=== PATIENT | female | born 1970 | race Caucasian/White ===

== ENCOUNTER 2018-01-31 01:58 | Emergency (ER) | payer OTHER ==
[~2018-01-31] VITALS: Ht 162.6 cm; Wt 85.7 kg
[2018-01-31] MEDS ORDERED: PANTOPRAZOLE 40 MG 10ML VIAL IV ONE (02:45)
[2018-01-31] MEDS ORDERED: FAMOTIDINE 20 MG/2 ML VIAL IV ONE (02:45)
[2018-01-31] MEDS ORDERED: FAMOTIDINE 20 MG/2 ML VIAL IV STA (02:50)
[2018-01-31] MEDS ORDERED: PROMETHAZINE HCL (IM) 25 MG/ML VIAL IM ONE (03:15)
[2018-01-31] MEDS ORDERED: MORPHINE SULFATE 5 MG/ML VIAL IV ONE (03:15)
[2018-01-31] MEDS ORDERED: SODIUM CHLORIDE 0.9% 1000ML 1,000 ML ONE (03:15)
[2018-01-31] MEDS ORDERED: ONDANSETRON HCL 4 MG ORAL DISINTEGRATING TAB PO ONE (03:15)
--- NOTE | 2018-01-31 05:20 | Diagnostic Imaging Report ---
EXAM: CT Abdomen and Pelvis WITH contrast INDICATION: Epigastric pain, right upper quadrant pain, nausea, vomiting COMPARISON: None. TECHNIQUE: Abdomen and pelvis were scanned utilizing a multidetector helical scanner from the lung base to the pubic symphysis after administration of IV contrast. Coronal and sagittal reformations were obtained. Routine protocol was performed. Scan was performed when during portal venous phase. IV CONTRAST: 100 mL of Isovue-300 ORAL CONTRAST: None RADIATION DOSE: Total DLP: 736.38 mGy*cm Estimated effective dose: (DLP x 0.015 x size factor) mSv COMPLICATIONS: None FINDINGS: LINES and TUBES: None. LOWER THORAX: Small sliding hiatal hernia HEPATOBILIARY: No focal hepatic lesions. No biliary ductal dilation. GALLBLADDER: There are stones in the gallbladder. No wall thickening. SPLEEN: No splenomegaly. PANCREAS: No focal masses or ductal dilatation. ADRENALS: No adrenal nodules KIDNEYS/URETERS: Kidneys enhance symmetrically. No hydronephrosis. No cystic or solid mass lesions. No stones. GI TRACT: No abnormal distention, wall thickening, or evidence of bowel obstruction. There are diverticula within the colon without evidence of diverticulitis. Appendix is normal. PELVIC ORGANS/BLADDER: Unremarkable. LYMPH NODES: No lymphadenopathy. VESSELS: There is mild atherosclerotic disease in the aorta and major arterial branches. PERITONEUM / RETROPERITONEUM: No free air or fluid. BONES: Unremarkable. SOFT TISSUES: Unremarkable. IMPRESSION: 1. Cholelithiasis without evidence of acute cholecystitis, however, this finding may explain patient's right upper quadrant pain, nausea and vomiting. 2. Small sliding hiatal hernia. 3. Diverticulosis of the sigmoid colon without evidence of diverticulitis. Signed by: Dr. Mario Alberto Dixon M.D. on 01/31/2018 5:17 AM
[2018-01-31] MEDS ORDERED: AUGMENTIN 875-1 EACH PO (05:45)
[2018-01-31] MEDS ORDERED: TYLENOL WITH C1 EACH PO (05:45)
[2018-01-31] MEDS ORDERED: ZOFRAN ODT4 MG SL (05:45)
[2018-01-31 06:02] VITALS: BP 128/88
== END 2018-01-31 06:07 | disposition home or self-care (01) ==
LOC: FSED 01:58
DX: R10.11 Right upper quadrant pain (principal); R11.2 Nausea with vomiting, unspecified; K80.70 Calculus of gallbladder and bile duct without cholecystitis without obstruction; F17.210 Nicotine dependence, cigarettes, uncomplicated
CPT/HCPCS: 74177; 80048; 80076; 85025; 99284; J2270; J7030

== ENCOUNTER → 2018-03-08 | Day surgery (SDC) | payer OTHER ==
[2018-03-06 10:33] LABS: BASOPHILS # (AUTO) 0.1 (0.0-0.1); BASOPHILS % 1.1 % (0.0-1.0); EOSINOPHILS # (AUTO) 0.6 (0.0-0.4); EOSINOPHILS % 6.8 % (0.0-6.0); HEMATOCRIT 43.3 % (34.2-44.1); HEMOGLOBIN 14.3 g/dL (12.0-16.0); LYMPHOCYTES # (AUTO) 2.8 (1.0-3.2); LYMPHOCYTES % 31.7 % (18.0-39.1); MEAN CORPUSCULAR HEMOGLOBIN 29.9 pg (28-32); MEAN CORPUSCULAR VOLUME 90.6 fL (81-99); MONOCYTES # (AUTO) 0.8 (0.2-0.8); MONOCYTES % 8.7 % (4.4-11.3); NEUTROPHILS # (AUTO) 4.6 (2.1-6.9); NEUTROPHILS % 51.5 % (38.7-80.0); PLATELET COUNT 371 x10e3/uL (140-360); RED BLOOD COUNT 4.78 x10e6/uL (3.6-5.1); RED CELL DISTRIBUTION WIDTH 12.4 % (11.7-14.4)
[2018-03-06 10:43] LABS: BILIRUBIN,URINE NEGATIVE (NEGATIVE); CLARITY,URINE CLEAR (CLEAR); COLOR,URINE YELLOW (YELLOW); KETONES,URINE NEGATIVE (NEGATIVE); LEUKOCYTE ESTERASE ,URINE NEGATIVE (NEGATIVE); NITRITE,URINE NEGATIVE (NEGATIVE); PROTEIN,URINE DIPSTICK NEGATIVE (NEGATIVE); URINE UROBILINOGEN 0.2 mg/dL (0.2 - 1)
[2018-03-06 10:56] LABS: ALANINE AMINOTRANSFERASE 39 IU/L (0-55); ALBUMIN 4.1 g/dL (3.5-5.0); ALBUMIN/GLOBULIN RATIO 1.1 (0.8-2.0); ALKALINE PHOSPHATASE 75 IU/L (40-150); ANION GAP 17.2 mmol/L (8-16); BLOOD UREA NITROGEN 7 mg/dL (7-26); BUN/CREATININE RATIO 9 (6-25); CALCIUM 10.4 mg/dL (8.4-10.2); CARBON DIOXIDE 26 mmol/L (22-29); CHLORIDE 104 mmol/L (98-107); CREATININE, SERUM 0.79 mg/dL (0.57-1.11); EST GLOMERULAR FILTRATION RATE > 60 ML/MIN (60-); GLUCOSE 103 mg/dL (74-118); POTASSIUM 4.2 mmol/L (3.5-5.1); SODIUM 143 mmol/L (136-145)
[~2018-03-08] MED LIST: ACETAMINOPHEN 1000 MG/100 ML IV ONE; AUGMENTIN 875-1 EACH PO; BUPIVACAINE 0.25%/EPI 30ML SDV INJ ONE; DEXAMETHASONE SOD PHOS INJ 4 MG/ML VIAL ONE; FENTANYL CITRATE/PF 100MCG/2 ML INJ ONE; GLYCOPYRROLATE INJ 1MG/ 5 ML SYR ONE; HYDROMORPHONE 1MG/1ML INJ ONE; IOPAMIDOL 300MG/ML 50ML INFUS..BTL IV ONE; KETOROLAC TROMETHAMINE 30 MG/ML VIAL ONE; LIDOCAINE HCL 2% LOCAL INJ 5 ML SDV VIAL INJ ONE; MIDAZOLAM HCL 2 MG/2 ML VIAL ONE; MORPHINE SULFATE 2 MG/ML SYR ONE; NEOSTIGMINE 5 MG/5ML SYR ONE; ONDANSETRON HCL INJ 2 MG/ML VIAL ONE; PROPOFOL IV EMULSION 10 MG/ML 20 ML VIAL ONE; ROCURONIUM BROMIDE 10 MG/ML 5ML VIAL ONE; SEVOFLURANE INHAL SOLN 250 ML PEN BTL ONE; TYLENOL WITH C1 EACH PO; ZOFRAN ODT4 MG SL
[2018-03-08 12:00] VITALS: BP 118/70
--- NOTE | 2018-03-08 15:12 | Operative Report ---
DATE OF PROCEDURE: March 08, 2018 PREOPERATIVE DIAGNOSIS: Cholecystitis and cholelithiasis. POSTOPERATIVE DIAGNOSIS: Severe acute and chronic cholecystitis and cholelithiasis with hydropic gallbladder. OPERATION PERFORMED: Laparoscopic cholecystectomy. ANESTHESIA: General. COMPLICATIONS: None. ESTIMATED BLOOD LOSS: Minimal. DESCRIPTION OF PROCEDURE: With the patient lying in bed in the supine position under good general endotracheal anesthesia, the abdomen was prepped with Betadine solution and draped in the usual manner. A Veress needle was introduced into the umbilicus and pneumoperitoneum was established without any difficulty. An 11-mm trocar was placed into the umbilicus and a 10 mm video laparoscope was placed into the intra-abdominal cavity. Under direct vision, three 5-mm trocars were placed in the right subcostal region and an extra 5-mm trocar had to be placed in the left upper abdomen due to the findings of the laparoscopy. At laparoscopy, the patient was found to have a distended gallbladder that was totally covered up with adhesions. The transverse colon and the duodenum was totally stuck to the gallbladder. The gallbladder was very thick-walled and distended. There were multiple stones impacted at the neck of the gallbladder. The adhesions to the gallbladder were then slowly and carefully taken down and the bowel was then swept downward. At this point, we managed to get down to the neck of the gallbladder. The gallbladder had to be decompressed in order to be able to properly grasp it. Once this was done, there was some large stones impacted at the neck of the gallbladder. The peritoneum at the neck of the gallbladder was then opened, and a tubular structure that was probably the cystic duct was identified. This was slowly and carefully followed. We were not 100% sure that this was the cystic duct. We decided to go ahead and do the cholangiogram although we had visualized what appeared to be the common duct in the middle of all the inflammatory process that was there. A small opening was made into the cystic duct, and a cholangiocath was introduced. Dye was inserted into the biliary tree, and this showed free flow of dye into the duodenum. No retained common duct stones. Indeed, the structure that we believed to be the cystic duct was the cystic duct. The cholangiocath was then removed. The cystic duct was then doubly clipped and divided. The cystic artery was similarly doubly clipped and divided. The gallbladder was then slowly and carefully taken off of the liver bed, which was totally plastered from the chronic inflammatory process. Nonetheless, the gallbladder was slowly and carefully taken off. Placed in a pouch and removed through the umbilicus after enlarging the umbilical opening to allow for passage of the large stones. Video laparoscopy was then again carried out. The liver bed was found to perfectly dry. All of the excess fluid was aspirated. The pneumoperitoneum was evacuated and all the trocars were removed under direct vision. The midline fascia at the umbilicus was then closed with 2 [id number] of 0 Vicryl. The layers were infiltrated on the way out with a solution of 0.25% Marcaine. Subcutaneous tissue was approximated with 3-0 Vicryl and the skin was closed with subcuticular 5-0 Vicryl. Benzoin, Steri-Strips and Band-Aids were applied. The sponge, lap and needle count was correct. The patient tolerated the procedure well, and returned to the recovery room in stable condition. Job#: [id number]
--- NOTE | 2018-03-13 07:41 | Diagnostic Imaging Report ---
PROCEDURE: INTRAOPERATIVE CHOLANGIOGRAM COMPARISON: CT Abdomen/Pelvis 01/31/18. TECHNIQUE: Intraoperative cholangiogram was performed. Abdominal fluoroscopic radiographs from the procedure were made available for evaluation. FINDINGS:Provided images demonstrate opacification of a non-dilated common duct and right hepatic intraductal system. No filling defects are demonstrated to suggest stone or mass. Apparent narrowing of the distal common bile duct is not felt to be significant given free passage of contrast into the duodenum and lack of dilation proximally. IMPRESSION: No evidence of common bile duct or right intrahepatic ductal dilation or stone. Apparent narrowing of the distal common bile duct is not felt to be significant given free passage of contrast into the duodenum. Dictated by: BARBIE TEMPLE M.D. on 03/13/2018 at 7:49 Electronically approved by: BARBIE TEMPLE M.D. on 03/13/2018 at 7:49
== END | disposition home or self-care (01) ==
LOC: OR 05:22
PROVIDERS: ATTEND Surgery
DX: K80.12 Calculus of gallbladder with acute and chronic cholecystitis without obstruction (principal); K82.1 Hydrops of gallbladder; K82.8 Other specified diseases of gallbladder; K76.0 Fatty (change of) liver, not elsewhere classified; G47.33 Obstructive sleep apnea (adult) (pediatric); F17.210 Nicotine dependence, cigarettes, uncomplicated; Z91.048 Other nonmedicinal substance allergy status; Z01.810 Encounter for preprocedural cardiovascular examination; Z01.812 Encounter for preprocedural laboratory examination
CPT/HCPCS: 36415; 47563; 74300; 80053; 81003; 85025; 88304; 93005; C1766; J1100; J1170; J1885; J2001; J2250; J2270; J2405; J3490; Q9967